=== PATIENT | female | born 1965 | race Caucasian/White ===

== ENCOUNTER → 2017-09-25 | Outpatient (CLI) | payer BC ==
--- NOTE | 2017-09-25 17:34 | WOMENS IMAGING REPORT ---
EXAM DESCRIPTION: BILAT SCREENING MAMMO W/CAD COMPLETED DATE/TIME: 09/25/2017 10:35 am REASON FOR STUDY: ROUTINE SCREENING; Z12.31 Z12.31 ENCNTR SCREEN MAMMOGRAM FOR MALIGNANT NEOPLASM O F ALPA COMPARISON: None. TECHNIQUE: Standard craniocaudal and mediolateral oblique views of each breast recorded using [employer] acquisition. LIMITATIONS: None. FINDINGS: No masses, calcifications or architectural distortion. No areas of suspicion. Read with the assistance of CAD. .[facility] - R2 Cenova Version 1.3 .[facility] - R2 Cenova Version 1.3 .[facility] - R2 Cenova Version 2.4 .[facility] [place] Cenova Version 2.4 .[facility], [facility] - R2 [employer] Inspector Version 9.2 IMPRESSION: NORMAL MAMMOGRAM. BIRADS 1. BREAST DENSITY: b. There are scattered areas of fibroglandular density. BIRAD: 1 NEGATIVE RECOMMENDATION: ROUTINE SCREENING COMMENT: The patient has been notified of the results by letter per SA requirements. Additional no tification policies are in place for contacting patient with suspicious or incomplete findings. Quality ID #[id number]: The [employer] [place] recommends an annual screening mammogram for women aged 40 years or over. This facility utilizes a reminder system to ensure that all patients receive reminder letters, and/or direct phone calls for appointments. This includes reminders for routine scr eening mammograms, diagnostic mammograms, or other Breast Imaging Interventions when appropriate. Th is patient will be placed in the appropriate reminder system. The [employer] [place] (ACR) has developed recommendations for screening MRI of the breast s in certain patient populations, to be used in conjunction with mammography. Breast MRI surveillanc e may be appropriate for women with more than 20% lifetime risk of developing breast cancer as deter mined by genetic testing, significant family history of the disease, or history of mantle radiation f or Hodgkins Disease. ACR Practice Guidelines 2008. TECHNICAL DOCUMENTATION: FINDING NUMBER: (1) ASSESSMENT: (1) JOB ID: [id number] [employer]- All Rights Reserved
== END ==
LOC: WI 09:47
PROVIDERS: ATTEND Physician Assistant Medical
DX: Z12.31 Encounter for screening mammogram for malignant neoplasm of breast (principal)
CPT/HCPCS: 77067; G0202

== ENCOUNTER 2018-03-20 06:58 | Day surgery (SDC) | payer BC ==
[2018-03-19 10:55] LABS: ABSOLUTE BASOPHILS # (AUTO) 0.1 10^3/uL (0.0-0.2); ABSOLUTE EOSINOPHILS # (AUTO) 0.3 10^3/uL (0.0-0.6); ABSOLUTE MONOCYTES (AUTO) 0.6 10^3/uL (0.1-1.4); ABSOLUTE NEUT (AUTO) 3.8 10^3/uL (1.7-8.2); BASOPHILS % (AUTO) 1.2 % (0-2); EOSINOPHILS % (AUTO) 4.3 % (0-6); HEMATOCRIT 39.5 % (36.0-47.0); HEMOGLOBIN 13.8 g/dL (12.0-15.5); LYMPHOCYTES % (AUTO) 29.9 % (13-45); MEAN CORPUSCULAR HEMOGLOBIN 31.2 pg (27.0-33.4); MEAN CORPUSCULAR HGB CONC 34.9 g/dL (32.0-36.0); MEAN CORPUSCULAR VOLUME 90 fl (80-97); MONOCYTES % (AUTO) 8.3 % (3-13); PLATELET COUNT 326 10^3/uL (150-450); RED BLOOD COUNT 4.41 10^6/uL (3.72-5.28); RED CELL DISTRIBUTION WIDTH 12.9 % (11.5-14.0); SEGMENTED NEUTROPHILS % (AUTO) 56.3 % (42-78); TOTAL CELLS COUNTED % (AUTO) 100 %; WHITE BLOOD COUNT 6.8 10^3/uL (4.0-10.5)
[2018-03-19 11:21] LABS: ALANINE AMINOTRANSFERASE 32 U/L (9-52); ALBUMIN 4.1 g/dL (3.5-5.0); ALKALINE PHOSPHATASE 78 U/L (38-126); ANION GAP 9 (5-19); ASPARTATE AMINO TRANSFERASE 31 U/L (14-36); BILIRUBIN,DIRECT 0.3 mg/dL (0.0-0.4); BILIRUBIN,TOTAL 0.4 mg/dL (0.2-1.3); BLOOD UREA NITROGEN 14 mg/dL (7-20); CALCIUM 9.5 mg/dL (8.4-10.2); CARBON DIOXIDE 30 mmol/L (22-30); CHLORIDE 105 mmol/L (98-107); GLUCOSE 80 mg/dL (75-110); POTASSIUM 4.6 mmol/L (3.6-5.0); SODIUM 143.6 mmol/L (137-145); TOTAL PROTEIN 7.2 g/dL (6.3-8.2)
--- NOTE | 2018-03-19 23:45 | EKG REPORT ---
SEVERITY:- BORDERLINE ECG - SINUS RHYTHM BORDERLINE T ABNORMALITIES, ANTERIOR LEADS : Confirmed by: Chapito Avalos 19-Mar-2018 23:45:03
[~2018-03-20 06:58] MED LIST: BUPIVACAINE HCL 0.25 % INJ/PF (2.5 MG/1 ML) 30 ML VIAL ONE; CEFAZOLIN SODIUM 2 GM in DEXTROSE 5%-WATER 100 ML IV SCH; LACTATED RINGERS 1000 ML IV PRN; LIDOCAINE 0.5% INJ-PF (5 MG/ML) 50 ML SDV SUBCUT PRN; LIDOCAINE 1% INJ-PF (10 MG/ML) 30 ML SDV ONE
[2018-03-20] MEDS ORDERED: FENTANYL CITRATE INJ/PF 100 MCG/2 ML AMPUL ONE (08:53)
[2018-03-20] MEDS ORDERED: PROPOFOL INJ 200 MG/20 ML VIAL IV ONE (08:54)
[2018-03-20] MEDS ORDERED: ONDANSETRON HCL INJ/PF 4 MG/2 ML SDV ONE (08:54)
[2018-03-20] MEDS ORDERED: MIDAZOLAM 2 MG/2 ML INJ ONE (08:54)
[2018-03-20] MEDS ORDERED: MORPHINE SULFATE 10 MG/ML INJ IV PRN (09:35)
[2018-03-20] MEDS ORDERED: MEPERIDINE HCL/PF INJ 25 MG/1 ML DISP.SYRIN IV PRN (09:35)
[2018-03-20] MEDS ORDERED: FENTANYL CITRATE INJ/PF 100 MCG/2 ML AMPUL IV PRN ×3 (09:35)
[2018-03-20] MEDS ORDERED: DIPHENHYDRAMINE HCL 50 MG/ML VIAL IV PRN (09:35)
[2018-03-20] MEDS ORDERED: PROMETHAZINE HCL INJ 25 MG/1 ML VIAL IV PRN (09:35)
--- NOTE | 2018-03-20 10:17 | Operative Report ---
Nonrecallable Operative Report DATE OF SURGERY: 03/20/18 PREOPERATIVE DIAGNOSIS: Right posterior cervical lymphadenopathy. POSTOPERATIVE DIAGNOSIS: Same as above. OPERATION: Excisional biopsy of enlarged right posterior cervical lymph node SURGEON: COLBY ADKINS 1ST [employer]AR SYSTEM DESIGNER: SAMARIA NARANJO ANESTHESIA: LMAC TISSUE REMOVED OR ALTERED: Right posterior cervical lymph node COMPLICATIONS: None apparent ESTIMATED BLOOD LOSS: Minimal PROCEDURE: Drains/implants: None. After informed consent was obtained, the patient was laid in the left lateral decubitus position. The area of the right posterior neck was prepped and draped in normal sterile fashion. A 15 blade scalpel was used to create a 3 cm incision over the large lymph node. Blunt dissection was used to remove the lymph node from the surrounding tissues. A judicious amount of Bovie electrocautery was used to quell any bleeding. The subcutaneous tissue was then closed using 3-0 Vicryl suture in simple running fashion. The overlying skin was closed using 4-0 Vicryl Rapide suture in subcuticular fashion. A dressing was fashioned, and the procedure was concluded. All sponge, instrument , and needle counts were correct 2. Condition: Stable. Samaria Naranjo PA-C was scrubbed and present the entirety of the procedure. She assisted with all portions of the procedure including opening the skin, removal of the lymph node, closure of the soft tissue, closure of the skin.
[2018-03-20] MEDS ORDERED: HYDROCODONE/ACETAMINOPHEN 5-325 MG TABLET ONE (10:52)
[2018-03-20] MEDS ORDERED: IBUPROFEN 800 MG TABLET ONE (12:05)
[2018-03-20 12:21] VITALS: BP 125/87
== END 2018-03-20 12:15 | disposition home or self-care (01) ==
LOC: OROUT 06:58
PROVIDERS: ATTEND Surgery
DX: R59.0 Localized enlarged lymph nodes (principal); I10 Essential (primary) hypertension; F41.9 Anxiety disorder, unspecified; L40.50 Arthropathic psoriasis, unspecified; M79.7 Fibromyalgia; F17.210 Nicotine dependence, cigarettes, uncomplicated; Z79.899 Other long term (current) drug therapy; Z88.8 Allergy status to other drugs, medicaments and biological substances
CPT/HCPCS: 93005; 36415; 88185 ×15; 88184; 85025; 81025; 80053; 88233; 88262; 88342 ×2; 88341 ×2; 88305 ×2; 93010; 38500; J2250; J0690; J3010; J2405; J2704; 320; J3490

== ENCOUNTER 2018-10-11 12:46 | Emergency (ER) | payer BC ==
--- NOTE | 2018-10-11 14:40 | ER Document Report ---
ED Medical Screen (RME) - General TRAVEL OUTSIDE OF THE U.S. IN LAST 30 DAYS: No <RANDELL NOEL - Last Filed: 10/11/18 14:37> <ALYSE CONTEH - Last Filed: 10/11/18 19:05> - General Chief Complaint: Bloody Stools Stated Complaint: BLOOD IN STOOL Time Seen by Provider: 10/11/18 14:36 Notes: Patient is complaining of blood in her bowel movements 3 times starting night. She says that she has a history of a bleeding hemorrhoid, but it is different than the blood and mucus mixture that she is passing at this time. She has a history of IBS, but no history of Crohn's, colitis, diverticulitis, etc. She had a colonoscopy done about a year ago and was told she did not have any polyps. Her brother was recently diagnosed with Crohn's disease. Patient says that she feels constipated and is only going a limited amount. Has been nauseated but not vomiting. Having lower abdominal cramping pains. Denies any fever. PMH: Depression, fibromyalgia, chronic pain. Hypertension, high cholesterol. ( RANDELL NOEL) - Related Data Allergies/Adverse Reactions: secukinumab [From [employer]] Allergy (Verified 10/11/18 14:24) lisinopril Adverse Reaction (Verified 10/11/18 14:24) Past Medical History - Social History Chew tobacco use (# tins/day): No Frequency of alcohol use: Occasional Drug Abuse: None - Past Medical History Cardiac Medical History: Reports: Hx Hypercholesterolemia, Hx Hypertension Denies: Hx Coronary Artery Disease, Hx Heart Attack Pulmonary Medical History: Reports: Hx Bronchitis - HX. BRONCHITIS Denies: Hx Asthma, Hx COPD, Hx Pneumonia Neurological Medical History: Denies: Hx Cerebrovascular Accident, Hx Seizures Renal/ Medical History: Denies: Hx Peritoneal Dialysis Musculoskeltal Medical History: Reports Hx Arthritis - JOINTS Past Surgical History: Reports: Hx Orthopedic Surgery - back, foot, Hx Tonsillectomy, Hx Tubal Ligation - Immunizations Immunizations up to date: Yes Hx Diphtheria, Pertussis, Tetanus Vaccination: No History of Influenza Vaccine for 08/2017 - 01/2018 Season: Refused <RANDELL NOEL - Last Filed: 10/11/18 14:37> - Vital signs Vitals: Temp Pulse Resp BP Pulse Ox 98.4 F 82 18 145/98 H 96 10/11/18 12:57 10/11/18 12:57 10/11/18 12:57 10/11/18 12:57 10/11/18 12:57 Course <RANDELL NOEL - Last Filed: 10/11/18 14:37> - Laboratory Result Diagrams: 10/11/18 14:43 10/11/18 14:43 <ALYSE CONTEH - Last Filed: 10/11/18 19:05> - Re-evaluation Re-evalutation: 10/11/18 18:58 Ear b/l: pt did have some scant purulence inside of her ear with minimal tenderness b/l EAC. TM wnl. No mastoid tenderness b/l. Rx for ciprodex will be given. Recommend consult with ENT. (ALYSE CONTEH) - Vital Signs Vital signs: Temp Pulse Resp BP Pulse Ox 98.4 F 82 18 145/98 H 96 10/11/18 12:57 10/11/18 12:57 10/11/18 12:57 10/11/18 12:57 10/11/18 12:57 - Laboratory Laboratory results interpreted by me: 10/11/18 14:43 Glucose 117 H Doctor's Discharge <RANDELL NOEL - Last Filed: 10/11/18 14:37> <ALYSE CONTEH - Last Filed: 10/11/18 19:05> - Discharge Clinical Impression: Lower abdominal pain, Blood in stool Constipation Qualifiers: Constipation type: unspecified constipation type Qualified Code(s): K59.00 - Constipation, unspecified Otitis externa of both ears Qualifiers: Otitis externa type: unspecified type Chronicity: acute Qualified Code(s): H60.503 - Unspecified acute noninfective otitis externa, bilateral Condition: Stable Disposition: HOME, SELF-CARE Instructions: Abdominal Pain ([facility]), Constipation ([facility]) Additional Instructions: Maintain adequate fluid and food intake High fiber/water intake mag Citrate for constipation as directed tylenol if needed Monitor for any worsening symptoms Make sure you are staying hydrated enough to urinate and have normal BM's Recheck with your PCM in 2-3 days Schedule an appointment with ENT for further evaluation. Schedule a consult with Gastroenterology for further evaluation and management as you may need a colonoscopy to further evaluate. Most causes of lower GI bleeds are benign, but can indicate a cancerous source which is why f/u is important. Return to the ED with any worsening symptoms and/or development of fever, headache, chest pain, palpitations, syncope, shortness of breath, trouble breathing, abdominal pain, n/v/d, blood in stool/urine, weakness, or other worsening symptoms that are concerning to you. Prescriptions: Ciprofloxacin HCl/Dexameth [Ciprodex Otic Suspension 7.5 ml Bottle] 4 drop OT BID #1 bottle Magnesium Citrate [Citrate of Magnesia 296 ml Bottle] 296 ml PO ONCE PRN #1 bottle PRN Reason: Forms: Elevated Blood Pressure, Smoking Cessation Education Referrals: SHERI MELGAR MD [EMERITUS] - 10/13/18 YESICA DENIS MD [ACTIVE STAFF] - Follow up as needed JEFFREY BHATT DO [ASSOCIATE] - Follow up as needed
[2018-10-11 15:22] LABS: ABSOLUTE BASOPHILS # (AUTO) 0.1 10^3/uL (0.0-0.2); ABSOLUTE EOSINOPHILS # (AUTO) 0.2 10^3/uL (0.0-0.6); ABSOLUTE LYMPHOCYTES (AUTO) 2.1 10^3/uL (0.5-4.7); ABSOLUTE MONOCYTES (AUTO) 0.5 10^3/uL (0.1-1.4); ABSOLUTE NEUT (AUTO) 5.5 10^3/uL (1.7-8.2); BASOPHILS % (AUTO) 0.9 % (0-2); EOSINOPHILS % (AUTO) 1.9 % (0-6); HEMATOCRIT 44.2 % (36.0-47.0); HEMOGLOBIN 15.3 g/dL (12.0-15.5); LYMPHOCYTES % (AUTO) 25.4 % (13-45); MEAN CORPUSCULAR HGB CONC 34.6 g/dL (32.0-36.0); MEAN CORPUSCULAR VOLUME 90 fl (80-97); MONOCYTES % (AUTO) 5.5 % (3-13); PLATELET COUNT 361 10^3/uL (150-450); RED BLOOD COUNT 4.94 10^6/uL (3.72-5.28); RED CELL DISTRIBUTION WIDTH 13.5 % (11.5-14.0); SEGMENTED NEUTROPHILS % (AUTO) 66.3 % (42-78); TOTAL CELLS COUNTED % (AUTO) 100 %; WHITE BLOOD COUNT 8.3 10^3/uL (4.0-10.5)
[2018-10-11 15:31] LABS: INTERNATIONAL RATION (INR) 0.83; PROTHROMBIN TIME 11.8 SEC (11.4-15.4)
[2018-10-11 15:32] LABS: PARTIAL THROMBOPLASTIN TIME 30.8 SEC (23.5-35.8)
[2018-10-11 15:40] LABS: ALANINE AMINOTRANSFERASE 27 U/L (9-52); ALBUMIN 4.5 g/dL (3.5-5.0); ALKALINE PHOSPHATASE 89 U/L (38-126); ANION GAP 13 (5-19); ASPARTATE AMINO TRANSFERASE 21 U/L (14-36); BILIRUBIN,DIRECT 0.2 mg/dL (0.0-0.4); BILIRUBIN,TOTAL 0.3 mg/dL (0.2-1.3); BLOOD UREA NITROGEN 10 mg/dL (7-20); CALCIUM 9.8 mg/dL (8.4-10.2); CARBON DIOXIDE 28 mmol/L (22-30); CHLORIDE 103 mmol/L (98-107); GLUCOSE 117 mg/dL (75-110); LIPASE 81.9 U/L (23-300); POTASSIUM 4.3 mmol/L (3.6-5.0); SODIUM 143.7 mmol/L (137-145); TOTAL PROTEIN 8.1 g/dL (6.3-8.2)
--- NOTE | 2018-10-11 16:46 | ER Document Report ---
ED General - General Chief Complaint: Bloody Stools Stated Complaint: BLOOD IN STOOL Time Seen by Provider: 10/11/18 14:36 TRAVEL OUTSIDE OF THE U.S. IN LAST 30 DAYS: No - HPI Notes: Patient is a 53-year-old female w. h/o IBS who presents to the ED complaining of lower abdominal pain, left greater than right, red blood in the stool over the last 2 days. Patient states that she does have history of hemorrhoids and blood in her stool, but this is a little bit darker than her usual. She has not noticed any black or tarry stool. Patient states that she is still able to eat and drink without any difficulties. She is urinating normally. Patient states that she has been constipated over the last couple weeks as well. Her last bowel movement was here in the emergency department she provided us with a sample. She has not had any other vaginal discharge, odor, or bleeding. Patient states that she did have a colonoscopy last year without any polyps. No other recent illness. Denies any headache, fever, URI, sore throat, chest pain, palpitations, syncope, cough, shortness of breath, wheeze, dyspnea, nausea /vomiting/diarrhea, urinary retention, dysuria, hematuria, loss of control of bowel or bladder, numbness/tingling, saddle anesthesia, muscle paralysis/ weakness, or rash. - Related Data Allergies/Adverse Reactions: secukinumab [From [employer]] Allergy (Verified 10/11/18 14:24) lisinopril Adverse Reaction (Verified 10/11/18 14:24) Past Medical History - Social History Smoking Status: Current Some Day Smoker Chew tobacco use (# tins/day): No Frequency of alcohol use: Occasional Drug Abuse: None Family History: Reviewed & Not Pertinent Patient has suicidal ideation: No Patient has homicidal ideation: No - Past Medical History Cardiac Medical History: Reports: Hx Hypercholesterolemia, Hx Hypertension Denies: Hx Coronary Artery Disease, Hx Heart Attack Pulmonary Medical History: Reports: Hx Bronchitis - HX. 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 LUNGS: Breath sounds clear to auscultation bilaterally and equal. No wheezes rales or rhonchi. HEART: Regular rate and rhythm without murmurs, rubs, gallops. ABDOMEN: Soft, nondistended abdomen. No guarding, no rebound. No masses appreciated. Normal bowel sounds present. No CVA tenderness bilaterally. + tenderness to the LLQ > RLQ. Rectal performed in presence of female nurse: brown stool, no impaction. I did visually inspect the stool sample provided that did have red blood noted. No melena. + external nonthrombosed hemorrhoids. Musculoskeletal: FROM to passive/active. Strength 5+/5. Extremities: No cyanosis, clubbing, or edema b/l. Peripheral pulses 2+. Capillary refill less than 3 seconds. NEUROLOGICAL: Normal speech, normal gait. Normal sensory, motor exams PSYCH: Normal mood, normal affect. SKIN: Warm, Dry, normal turgor, no rashes or lesions noted. Course - Re-evaluation Re-evalutation: 10/11/18 18:44 Patient is an afebrile, well-hydrated, 53-year-old female who presents to the ED with lower abdominal pain, unspecified, and scant red blood in stool which I suspect to be of lower origin. Patient also presents with constipation which could be attributing to her symptoms. Vitals are acceptable without any significant tachycardia, tachypnea, or hypoxia. PE is otherwise unremarkable. Patient is hemodynamically stable. Patient has not had any worsening or deterioration in her symptoms. She is nontoxic-appearing and is tolerating p.o. without any difficulties. CBC, CMP, lipase, coags unremarkable for acute pathology. CT scan of the abdomen pelvis was unremarkable for any acute pathology. Stool cx obtained at triage and is pending. Low suspicion/risk for acute appendicitis, bowel obstruction, acute cholecystitis, acute cholangitis, perforated diverticulitis, incarcerated hernia, pancreatitis, perforated ulcer, peritonitis, sepsis, pelvic inflammatory disease, tubo-ovarian abscess, ovarian torsion, or other systemic emergent condition at this time. Patient is aware that her condition can change from initial presentation and she needs to monitor symptoms closely and seek medical attention if any acute changes. Rx for mag citrate. Conservative measures otherwise for symptoms. Recheck with your PCM in 2-3 days. Schedule a consult with a continuity tester. Return to the ED with any worsening/concerning symptoms otherwise as reviewed in discharge. Patient is in agreement. - Vital Signs Vital signs: Temp Pulse Resp BP Pulse Ox 98.4 F 82 18 145/98 H 96 10/11/18 12:57 10/11/18 12:57 10/11/18 12:57 10/11/18 12:57 10/11/18 12:57 - Laboratory Result Diagrams: 10/11/18 14:43 10/11/18 14:43 Laboratory results interpreted by me: 10/11/18 14:43 Glucose 117 H Discharge - Discharge Clinical Impression: Lower abdominal pain, Blood in stool Constipation Qualifiers: Constipation type: unspecified constipation type Qualified Code(s): K59.00 - Constipation, unspecified Condition: Stable Disposition: HOME, SELF-CARE Instructions: Abdominal Pain ([facility]), Constipation ([facility]) Additional Instructions: Maintain adequate fluid and food intake High fiber/water intake mag Citrate for constipation as directed tylenol if needed Monitor for any worsening symptoms Make sure you are staying hydrated enough to urinate and have normal BM's Recheck with your PCM in 2-3 days Schedule a consult with Gastroenterology for further evaluation and management as you may need a colonoscopy to further evaluate. Most causes of lower GI bleeds are benign, but can indicate a cancerous source which is why f/u is important. Return to the ED with any worsening symptoms and/or development of fever, headache, chest pain, palpitations, syncope, shortness of breath, trouble breathing, abdominal pain, n/v/d, blood in stool/urine, weakness, or other worsening symptoms that are concerning to you. Prescriptions: Magnesium Citrate [Citrate of Magnesia 296 ml Bottle] 296 ml PO ONCE PRN #1 bottle PRN Reason: Forms: Elevated Blood Pressure, Smoking Cessation Education Referrals: SHERI MELGAR MD [EMERITUS] - 10/13/18 YESICA DENIS MD [ACTIVE STAFF] - Follow up as needed
--- NOTE | 2018-10-11 18:12 | RADIOLOGY REPORT (SQ) ---
EXAM DESCRIPTION: CT ABD/PELVIS WITH IV ONLY COMPLETED DATE/TIME: 10/11/2018 5:45 pm REASON FOR STUDY: LLQ tenderness COMPARISON: None. TECHNIQUE: CT scan of the abdomen and pelvis performed using helical scanning technique with dynamic intravenous contrast injection. No oral contrast. Images reviewed with lung, soft tissue, and bone windows. Reconstructed coronal and sagittal MPR images reviewed. Delayed images for evaluation of the urinary system also acquired. All images stored on PACS. All CT scanners at this facility use dose modulation, iterative reconstruction, and/or weight based d osing when appropriate to reduce radiation dose to as low as reasonably achievable (ALARA). [facility]: Dose Right [facility]: CareDose [facility]: Dose Right [facility]: Teradose 4D [facility]: Plovgh CONTRAST TYPE AND DOSE: contrast/concentration: Isovue 350.00 mg/ml; Total Contrast Delivered: 100.0 ml; Total Saline Delivered: 72.0 ml RENAL FUNCTION: BUN 10; creatinine 0.70 RADIATION DOSE: CT Rad equipment meets quality standard of care and radiation dose reduction techniq ues were employed. CTDIvol: 13.0 - 15.2 mGy. DLP: 1599 mGy-cm.. LIMITATIONS: None. FINDINGS: LOWER CHEST: No significant findings. No nodules or infiltrates. LIVER: Normal size. No masses. No dilated ducts. SPLEEN: Normal size. No focal lesions. PANCREAS: No masses. No significant calcifications. No adjacent inflammation or peripancreatic fluid collections. Pancreatic duct not dilated. GALLBLADDER: No identified stones by CT criteria. No inflammatory changes to suggest cholecystitis. ADRENAL GLANDS: No significant masses or asymmetry. RIGHT KIDNEY AND URETER: No solid masses. No significant calcifications. No hydronephrosis or hyd roureter. LEFT KIDNEY AND URETER: No solid masses. No significant calcifications. No hydronephrosis or hydr oureter. AORTA AND VESSELS: No aneurysm. No dissection. Renal arteries, SMA, celiac without stenosis. RETROPERITONEUM: No retroperitoneal adenopathy, hemorrhage or masses. BOWEL AND PERITONEAL CAVITY: No masses or inflammatory changes. No free fluid or peritoneal masses. APPENDIX: Normal. PELVIS: No mass. No free fluid. Normal bladder. ABDOMINAL WALL: No masses. No hernias. BONES: Lumbosacral fusion hardware without evidence of complication. OTHER: No other significant finding. IMPRESSION: NO SIGNIFICANT OR ACUTE FINDING IN THE ABDOMEN OR PELVIS ON CT SCAN WITH IV CONTRAST. TECHNICAL DOCUMENTATION: JOB ID: [id number] Quality ID # [id number]: Final reports with documentation of one or more dose reduction techniques (e.g., Au tomated exposure control, adjustment of the mA and/or kV according to patient size, use of iterative reconstruction technique) 2010 [email or web address]- All Rights Reserved Reading location - IP/workstation name: [email or web address]
[2018-10-11 19:09] VITALS: BP 141/99
== END 2018-10-11 19:09 | disposition home or self-care (01) ==
LOC: ER 12:46
DX: K92.1 Melena (principal); K59.00 Constipation, unspecified; H60.503 Unspecified acute noninfective otitis externa, bilateral; R10.30 Lower abdominal pain, unspecified; K64.4 Residual hemorrhoidal skin tags; I10 Essential (primary) hypertension; F17.200 Nicotine dependence, unspecified, uncomplicated; Z87.19 Personal history of other diseases of the digestive system; Z88.8 Allergy status to other drugs, medicaments and biological substances
CPT/HCPCS: 36415; 74177; 80053; 83690; 85025; 85610; 85730; 87045; 87205; 99283

== ENCOUNTER 2019-11-03 10:51 | Emergency (ER) | payer BC ==
[2019-11-03] MEDS ORDERED: ASPIRIN 81 MG TABLET, CHEWABLE PO ONE (12:21)
[2019-11-03] MEDS ORDERED: METOCLOPRAMIDE HCL ORAL SOLN 10 MG/10 ML UDCUP PO ONE (12:22)
[2019-11-03] MEDS ORDERED: LIDOCAINE 2% VISCOUS SOLN 20 ML UDCUP PO ONE (12:22)
[2019-11-03] MEDS ORDERED: MAG HYDROX/AL HYDROX/SIMETH SUSP 30 ML UDCUP PO ONE (12:22)
--- NOTE | 2019-11-03 12:24 | ER Document Report ---
ED Medical Screen (RME) - General Chief Complaint: Chest Pain Stated Complaint: CHEST PAIN Time Seen by Provider: 11/03/19 12:15 TRAVEL OUTSIDE OF THE [place] IN LAST 30 DAYS: No - HPI Notes: 11/03/19 12:22 54-year-old female presents to the emergency room for complaints of substernal chest pain that is heavy that is been occurring off and on for the last 3 weeks. Patient also complains of epigastric abdominal pain. Patient states that she did have a stress test done 7 to 8 years ago. Is a smoker. No history of asthma or COPD. Patient does report nausea, no vomiting. Symptoms are becoming progressive. She was trying to see her primary care provider today but was advised to come to the emergency room. Patient states that she started ciprofloxacin for an otitis media due to having MRSA and Pseudomonas in her ear, she thinks this may have exacerbated her symptoms. Patient does follow with Dr. Martinez, resident care spec, for palpitations but has not seen him for this issue I have greeted and performed a rapid initial assessment of this patient. A comprehensive ED assessment and evaluation of the patient, analysis of test results and completion of the medical decision making process will be conducted by additional ED providers. PHYSICAL EXAMINATION: GENERAL: Well-appearing, well-nourished and in no acute distress. HEAD: Atraumatic, normocephalic. EYES: Pupils equal round extraocular movements intact, conjunctiva are normal. ENT: Nares patent NECK: Normal range of motion LUNGS: No respiratory distress. Unable to reproduce chest pain on palpation. Musculoskeletal: Normal range of motion NEUROLOGICAL: Normal speech, normal gait. PSYCH: Normal mood, normal affect. SKIN: Warm, Dry, normal turgor, no rashes or lesions noted. 11/03/19 12:24 - Related Data Allergies/Adverse Reactions: secukinumab [From [employer]] Allergy (Verified 11/03/19 12:15) lisinopril Adverse Reaction (Verified 11/03/19 12:15) Past Medical History - Social History Chew tobacco use (# tins/day): No Frequency of alcohol use: None Drug Abuse: None - Past Medical History Cardiac Medical History: Reports: Hx Hypercholesterolemia, Hx Hypertension Denies: Hx Coronary Artery Disease, Hx Heart Attack Pulmonary Medical History: Reports: Hx Bronchitis - HX. 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
[2019-11-03] MEDS ORDERED: ASPIRIN 81 MG TABLET, CHEWABLE ONE (12:34)
--- NOTE | 2019-11-03 12:55 | RADIOLOGY REPORT (SQ) ---
EXAM DESCRIPTION: CHEST 2 VIEWS COMPLETED DATE/TIME: 11/03/2019 12:46 pm REASON FOR STUDY: cp COMPARISON: 06/28/2016 EXAM PARAMETERS: NUMBER OF VIEWS: two views TECHNIQUE: Digital Frontal and Lateral radiographic views of the chest acquired. RADIATION DOSE: NA LIMITATIONS: none FINDINGS: LUNGS AND PLEURA: No opacities, masses or pneumothorax. No pleural effusion. MEDIASTINUM AND HILAR STRUCTURES: No masses or contour abnormalities. HEART AND VASCULAR STRUCTURES: Heart normal size. No evidence for failure. BONES: No acute findings. HARDWARE: None in the chest. OTHER: No other significant finding. IMPRESSION: NO ACUTE RADIOGRAPHIC FINDING IN THE CHEST. TECHNICAL DOCUMENTATION: JOB ID: [id number] [employer]- All Rights Reserved Reading location - IP/workstation name: [email or web address]
[2019-11-03 13:36] LABS: ABSOLUTE BASOPHILS # (AUTO) 0.1 10^3/uL (0.0-0.2); ABSOLUTE EOSINOPHILS # (AUTO) 0.1 10^3/uL (0.0-0.6); ABSOLUTE LYMPHOCYTES (AUTO) 2.6 10^3/uL (0.5-4.7); ABSOLUTE MONOCYTES (AUTO) 0.6 10^3/uL (0.1-1.4); ABSOLUTE NEUT (AUTO) 5.7 10^3/uL (1.7-8.2); BASOPHILS % (AUTO) 0.8 % (0-2); EOSINOPHILS % (AUTO) 1.2 % (0-6); HEMATOCRIT 40.7 % (36.0-47.0); HEMOGLOBIN 14.2 g/dL (12.0-15.5); LYMPHOCYTES % (AUTO) 28.7 % (13-45); MEAN CORPUSCULAR HEMOGLOBIN 31.3 pg (27.0-33.4); MEAN CORPUSCULAR HGB CONC 34.8 g/dL (32.0-36.0); MEAN CORPUSCULAR VOLUME 90 fl (80-97); MONOCYTES % (AUTO) 6.2 % (3-13); PLATELET COUNT 336 10^3/uL (150-450); RED BLOOD COUNT 4.52 10^6/uL (3.72-5.28); SEGMENTED NEUTROPHILS % (AUTO) 63.1 % (42-78); TOTAL CELLS COUNTED % (AUTO) 100 %
[2019-11-03 13:55] LABS: ALBUMIN 4.7 g/dL (3.5-5.0); ALKALINE PHOSPHATASE 85 U/L (38-126); ANION GAP 11 (5-19); ASPARTATE AMINO TRANSFERASE 27 U/L (14-36); BILIRUBIN,DIRECT 0.1 mg/dL (0.0-0.4); BILIRUBIN,TOTAL 0.3 mg/dL (0.2-1.3); BLOOD UREA NITROGEN 19 mg/dL (7-20); CARBON DIOXIDE 27 mmol/L (22-30); CHLORIDE 101 mmol/L (98-107); CREATINE KINASE 79 U/L (30-135); GLUCOSE 84 mg/dL (75-110); TOTAL PROTEIN 8.1 g/dL (6.3-8.2)
[2019-11-03 14:06] LABS: CREATINE KINASE MB 0.71 ng/mL (<4.55)
[2019-11-03 14:09] LABS: TROPONIN I < 0.012 ng/mL
--- NOTE | 2019-11-03 15:09 | ER Document Report ---
ED Cardiac - General Chief Complaint: Chest Pain Stated Complaint: CHEST PAIN Time Seen by Provider: 11/03/19 12:15 Mode of Arrival: Ambulatory Information source: Patient TRAVEL OUTSIDE OF THE [place] IN LAST 30 DAYS: No - HPI Patient complains to provider of: Other - Patient reports pain as though there is a gas bubble substernal. Improves with burping. Patient reports that this problem began when she started taking ciprofloxacin for an ear infection. She has discontinued the ciprofloxacin 1 week ago however she continues to have this burping gas problem in the center of her chest. Was the onset of pain: Gradual Is the pain a: New problem Chest pain location: Substernal Quality of pain: Mild, Other - Notes a bubble that feels like gas pressure not completely eliminated with burping. Denies any known history of gastroesophageal reflux disease. Patient reports that this problem began after taking ciprofloxacin. Chest pain radiation location: None Severity now: Mild Severity at worst: Moderate Pain level currently: 2 Chest pain precipitating factors: Nonexertional chest discomfort. Cardiac risk factors: Hypertension, Smoker Positive cardiac history: No Similar symptoms previously: Yes Notes: Patient reports that about 6 or 7 years ago she had a stress test and [place] prior to coming to [place]. The reason for that stress test was associated with palpitations. Patient reports she has seen a [employer] data warehouse developer in [place] about 1 year ago again it was for palpitation. Patient denies any palpitations with this chest discomfort of gas bubble. - Related Data Allergies/Adverse Reactions: secukinumab [From Cosentyx] Allergy (Verified 11/03/19 12:15) lisinopril Adverse Reaction (Verified 11/03/19 12:15) Past Medical History - General Information source: Patient - Social History Smoking Status: Current Every Day Smoker Chew tobacco use (# tins/day): No Frequency of alcohol use: None Drug Abuse: None Family History: Reviewed & Not Pertinent Patient has suicidal ideation: No Patient has homicidal ideation: No - Past Medical History Cardiac Medical History: Reports: Hx Hypercholesterolemia, Hx Hypertension Denies: Hx Coronary Artery Disease, Hx Heart Attack Pulmonary Medical History: Reports: Hx Bronchitis - HX. BRONCHITIS Denies: Hx Asthma, Hx COPD, Hx Pneumonia Neurological Medical History: Denies: Hx Cerebrovascular Accident, Hx Seizures Renal/ Medical History: Denies: Hx Peritoneal Dialysis Musculoskeletal Medical History: Reports Hx Arthritis - JOINTS Past Surgical History: Reports: Hx Orthopedic Surgery - back, foot, Hx Tonsillectomy, Hx Tubal Ligation - Immunizations Immunizations up to date: Yes Hx Diphtheria, Pertussis, Tetanus Vaccination: No Review of Systems - Review of Systems Constitutional: See HPI Cardiovascular: See HPI Respiratory: No symptoms reported Gastrointestinal: Other - Nausea and esophageal gas bubble sensation requiring burping Genitourinary: No symptoms reported Musculoskeletal: Other - Fibromyalgia Physical Exam - Vital signs Vitals: Temp Pulse Resp BP Pulse Ox 98.9 F 87 18 129/87 H 98 11/03/19 11:18 11/03/19 11:18 11/03/19 11:18 11/03/19 11:18 11/03/19 11:18 Interpretation: Normal - General General appearance: Appears well, Alert - HEENT Head: Normocephalic, Atraumatic Eyes: Normal Pupils: PERRL - Respiratory Respiratory status: No respiratory distress Chest status: Nontender Breath sounds: Normal Chest palpation: Normal - Cardiovascular Rhythm: Regular Heart sounds: Normal auscultation Murmur: No Friction rub: No Gallop: None auscultated - Abdominal Inspection: Normal Distension: No distension Bowel sounds: Normal Tenderness: Nontender Organomegaly: No organomegaly - Back Back: Normal, Nontender - Extremities General upper extremity: Normal inspection, Nontender, Normal color, Normal ROM, Normal temperature General lower extremity: Normal inspection, Nontender, Normal color, Normal ROM, Normal temperature, Normal weight bearing. No: Huong's sign - Neurological Neuro grossly intact: Yes Cognition: Normal Orientation: AAOx4 One[place] Coma Scale Eye Opening: Spontaneous [place] Coma Scale Verbal: Oriented [place] Coma Scale Motor: Obeys Commands Jamaal Coma Scale Total: 15 Speech: Normal Motor strength normal: LUE, RUE, LLE, RLE Sensory: Normal - Psychological Associated symptoms: Normal affect, Normal mood - Skin Skin Temperature: Warm Skin Moisture: Dry Skin Color: Normal Course - Vital Signs Vital signs: Temp Pulse Resp BP Pulse Ox 98.9 F 87 18 129/87 H 98 11/03/19 12:15 11/03/19 11:18 11/03/19 12:15 11/03/19 11:18 11/03/19 12:15 - Laboratory Result Diagrams: 11/03/19 13:15 11/03/19 13:15 - Diagnostic Test Radiology reviewed: Image reviewed, Reports reviewed - Patient reports that she had received a GI cocktail with some improved results. Not completely gone at this time. Discharge - Discharge Clinical Impression: GERD (gastroesophageal reflux disease) Condition: Stable Disposition: HOME, SELF-CARE Instructions: Reflux Disease (GERD) ([facility]) Prescriptions: Omeprazole 40 mg PO DAILY #30 capsule. Metoclopramide HCl [Reglan 10 mg Tablet] 10 mg PO BID #60 tablet Forms: Smoking Cessation Education Referrals: BRODIE DAVIES MD [Primary Care Provider] - Follow up as needed
[2019-11-03 16:08] VITALS: BP 117/82
--- NOTE | 2019-11-03 22:35 | EKG REPORT ---
SEVERITY:- ABNORMAL ECG - SINUS RHYTHM PROBABLE LEFT VENTRICULAR HYPERTROPHY : Confirmed by: Chapito Avalos 03-Nov-2019 22:35:25
== END 2019-11-03 16:18 | disposition home or self-care (01) ==
LOC: ER 10:51
DX: K21.9 Gastro-esophageal reflux disease without esophagitis (principal); R07.9 Chest pain, unspecified; F17.200 Nicotine dependence, unspecified, uncomplicated; E78.00 Pure hypercholesterolemia, unspecified; I10 Essential (primary) hypertension; Z98.51 Tubal ligation status
CPT/HCPCS: 93005; 99285; 36415; 82553; 82550; 85025; 80053; 84484; 71046; 93010; J3490